=== PATIENT | male | born 1975 | race Two or more races ===

== ENCOUNTER → 2021-04-02 | Emergency (ER) | payer SELFPAY ==
[~2021-04-02] VITALS: Ht 172.7 cm; Wt 77.1 kg
[~2021-04-02] MED LIST: HALOPERIDOL LACTATE INJ 5 MG/ML VIAL IM ONE; HALOPERIDOL LACTATE INJ 5 MG/ML VIAL ONE
--- NOTE | 2021-04-02 19:45 | NUR ---
PATIENT BIBRA, WAS FOUND DRUNK ON THE SIDE WALK, COMBATIVE. PT REFUSES TO ANSWER QUESTIONS. PATIENT A/O X 3, RR EVEN AND UNLABORED. NO SOB NOTED. PATIENT TAKEN TO ER BED 14, CONNECTED TO MONITORS.
[2021-04-03 02:33] VITALS: BP 130/70
--- NOTE | 2021-04-03 02:33 | NUR ---
Patient discharged to home in stable condition. Written and verbal after care instructions given. Patient verbalizes understanding of instruction.
== END | disposition home or self-care (01) ==
LOC: ER 19:27 → EDBD 19:27
DX: S09.8XXA Other specified injuries of head, initial encounter (principal); F10.129 Alcohol abuse with intoxication, unspecified; R51.9 Headache, unspecified; R00.0 Tachycardia, unspecified; Y90.9 Presence of alcohol in blood, level not specified; Z59.0 Homelessness; X58.XXXA Exposure to other specified factors, initial encounter; Y93.89 Activity, other specified; Y92.89 Other specified places as the place of occurrence of the external cause; Y99.8 Other external cause status
CPT/HCPCS: 70450; 72125; 93005; 96372; 99285; J1630